=== PATIENT | male | born 1960 | race African-American/Black ===

== ENCOUNTER 2019-02-13 16:50 | Inpatient (IN) | payer OTHER ==
[~2019-02-13] VITALS: Ht 165.1 cm; Wt 71.2 kg
--- NOTE | 2019-02-13 17:52 | NUR ---
PATIENT ADMITTED TO ROOM 520B, ORDERS Juan C MCDANIEL, AT 1600. DIAGNOSIS, MAJOR NEUROCOGNITIVE DISORDER. PATIENT ABLE TO ANSWER ALL QUESTIONS APPROPRIATELY. WEIGHED ON BED SCALES AT 159.2 POUNDS, HEIGHT IS 5'7.5 INCHES. MEDICATION ORDERS ENTERED. PATIENT ON REGULAR DIET, SERVED BY DIETARY AT THIS TIME. PATIENT VOLUNTARY ADMIT, SIGNED REQUIRED PAPERWORK PER SELF.
[2019-02-13] MEDS ORDERED: LEXAPRO 10 MG T10 M2 PO (18:02)
[2019-02-13] MEDS ORDERED: ASPIR 8181 MG PO (18:03)
[2019-02-13] MEDS ORDERED: LIPITOR 20 MG T20 M1 PO ×2 (18:06→18:07)
--- NOTE | 2019-02-13 18:08 | NUR ---
INFORMATION RECEIVED FROM ADMITTING IS THAT PATIENT'S MEDICAID IS NOT CURRENTLY ACTIVE. N.P., ALICIA MCDANIEL, NOTIFIED OF IN[employer]MA[employer], WHO ADVISED THAT PATIENT HAS ALREADY BEEN ADMITTED. THEREFORE, NOTHING TO BE DONW AT THIS TIME, OTHER THAN ACCEPT THE PATIENT PRO-BARB.
[2019-02-13] MEDS ORDERED: CLONIDINE HCL0.2 M2 TOP (18:10)
[2019-02-13] MEDS ORDERED: KEPPRA 500 MG500 M1 PO (18:12)
[2019-02-13] MEDS ORDERED: LISINOPRIL40 MG PO (18:14)
[2019-02-13 19:39] VITALS: BP 129/70
[2019-02-13 21:23] LABS: HEMATOCRIT 39.8 % (42.0-52.0); HEMOGLOBIN 13.2 gm/dL (14.0-18.0); MCH 29.3 pg (26.0-34.0); MCHC 33.3 g/dL (28.0-37.0); MCV 87.9 fL (80.0-100.0); RBC 4.53 mil/uL (4.50-6.00); RDW 15.6 % (10.5-14.5); WBC 7.2 thou/uL (4.0-11.0)
[2019-02-13 21:42] LABS: ALBUMIN 3.6 g/dL (3.4-5.0); CREATININE 1.2 mg/dL (0.7-1.3); MAGNESIUM 1.8 mg/dL (1.8-2.4); POTASSIUM 3.8 mmol/L (3.5-5.1)
--- NOTE | 2019-02-13 21:59 | NUR ---
Pt resting in bed upon arrival to shift. Pt met with hospitalist. Pt compliant with medication, snack and lab draw. Pt did ambulate steady into day room to look out of window x 1. Pt provided walker since he uses cane at home, pt is using metcalf rails when ambulating at this time. Pt has blunted affect but good eye contact when interacting with staff. Pt had clonidine patch explained to him purpose and removal. Pt provided urinal for hs use. Pt did verbalize fleeting SI but no specific plan.
[2019-02-13 23:15] LABS: TSH 1.405 uIU/mL (0.358-3.740)
[2019-02-14 07:30] VITALS: BP 105/72
--- NOTE | 2019-02-14 17:15 | NUR ---
ASSUMED CARE AT 0700 TODAY. PT. VERY QUIET SITTING ON THE UNIT WATCHING TV. PT. APPROACHED ON FEBRUARY OCCASIONS TODAY RE: MOOD, THOUGHT PROCESS, PHYSICAL BEING. HE STATES HIS BOWELS HAS NOT MOVE AT ALL TODAY, VERY LITTLE YESTERDAY. HE STATES HE BELIEVES HE WILL REQUIRE A LAXATIVE OR STOOL SOFTNER. ALICIA WU NEEDLE LOOM TENDER HERE TO SEE PT. TODAY. PT. CONTINUES TO EXHIBIT A FLAT AFFECT AND DEPRESSED MOOD. HE DENIES SI/HI AND AVH AT THIS TIME. REFUSED SHOWER TODAY. STATED HE CLEANED HIMSELF UP, BUT NOT NOTED BY STAFF. ATE ALL MEALS ON UNIT WITH GOOD APPETITE. TOOK MEDICATIONS WITHOUT PROBLEMS NOTED. ATTENEDED GROUP.
[2019-02-14 20:01] VITALS: BP 118/76
[2019-02-14 21:42] VITALS: BP 118/76
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
[2019-02-15 07:05] VITALS: BP 139/94
[2019-02-15 13:17] VITALS: BP 124/56
--- NOTE | 2019-02-15 13:25 | NUR ---
ASSUMED CARE AT 0700 THIS MORNING. HE WAS ON THE UNIT FOR MEALS, AND GROUPS. PT. CONTINUES TO BE VERY QUIET, SPEAKING LITTLE TO STAFF. HE TOOK HIS MEDICATIONS WITHOUT PROBLEMS NOTED. HE ATTENDED GROUPS, BUT SAID LITTLE. THIS RN TALKED TO THE PT. ABOUT SEEKING STAFF WHEN HE WANTS TO OR NEEDS TO TALK. PT. NODDED HIS HEAD THE AFFIRMATIVE THAT HE UNDERSTOOD. HE REFUSED SHOWER WHEN OFFERED. DENIES HI/AVH. HE IS NOT TALKING ABOUT SI WITH STAFF.
--- NOTE | 2019-02-15 19:31 | NUR ---
ASSUMED CARE OF THE PT AT 1915PM. ALERT ET ORIENTED X 3. MAKES NEEDS KNOWN, WALKS WITH A WALKER. RATES HIS ANXIETY AND DEPRESSION A 05/22. +SI, WITH NO PLAN. DENIES HI AT THIS TIME. REMAINS ON 12 MINUTE CHECKS.
[2019-02-15 20:08] VITALS: BP 123/83
--- NOTE | 2019-02-16 03:17 | NUR ---
THE PT APPEARS TO HAVE BEEN SLEEPING THIS SHIFT, RESP., EVEN AND UNLABORED. WALKS WITH A WALKER, HAS A FAIRLY STEADY GAIT. DENIED PAIN EARLIER IN THE SHIFT.
--- NOTE | 2019-02-16 06:12 | NUR ---
THE PT SLEPT 8.2 HOURS LAST NIGHT.
[2019-02-16 07:49] VITALS: BP 138/102
[2019-02-16 08:00] VITALS: BP 138/102
--- NOTE | 2019-02-16 08:00 | NUR ---
PT UP THIS AM IN DINNING ROOM. PT USES WALKER TO HELP WITH AMBULATION. PT DENIES ANY PAIN THIS AM. PT LUNGS CLEAR, NO WHEEZING ASCULTATED. PT HAS FLAT AFFECT.
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
--- NOTE | 2019-02-16 13:23 | NUR ---
PT HAS BEEN ATTENDING GROUP TODAY. NO COMPLAINTS. COMPLAIANT WITH MEDS AND THERAPY.
--- NOTE | 2019-02-16 14:40 | NUR ---
1430: Report from LISSA See, care assumed. Pt resting lt lateral position in bed, no distress noted.
[2019-02-16 20:10] VITALS: BP 142/96
[2019-02-16 21:30] VITALS: BP 134/86
--- NOTE | 2019-02-17 02:08 | NUR ---
Withdrawn to room at beginning of shift-did come out briefly for hs snack-minimally verbal during initial assessment -blunted affect-slight delay to verbal responses-did report mood as "tired" and acknowledges feeling depressed stating "i was staying with my son and he has 5 dogs,2cats and a rabbit,I wasn't getting much sleep" Does report low energy,feelings of hopelessness since "my girlfriend of 25 years left me" but states he feels slightly more hopeful currently. Denies c/o pain/discomfort. BP recorded at 2030 132/102-rechecked manually and is 134/86-denies headache,visual disturbance etc. gait slow but steady with use of roller walker-bs slightly hypoactive and reports loose stools x 2 today-refuses hs stool softner stating "it is too soft already-i don't want anuything for my bowels it is messing me up". Denies si/sh/hi-to bed at approx 2030.
--- NOTE | 2019-02-17 02:18 | NUR ---
Awake and restless in room-sitting on side of bed-requesting coffee- stating he "never" sleeps well and did take melatonin for awhile and it helped-encouraged to speak with md farias this-states he doesn't feel like he wants to take anything at this time for sleep "i just want to sit up for a little bit"
[2019-02-17 08:15] VITALS: BP 151/114
--- NOTE | 2019-02-17 08:31 | NUR ---
0715: Report rec from noc shift, care assumed. Awake sitting at edge of bed, oriented to name and place, forgetful, pleasant and cooperative. Urostomy site checked, no leaking noted, stoma intact/WNL color. VS stable, skin w/d, color pale. Ambulatory to DR, gait steady, feeds self, appetite good, consumed 100% of a.m. meal.
--- NOTE | 2019-02-17 08:36 | NUR ---
0715: Report from [facility] shift, care assumed. Ambulatory in halls with walker, gait steady, incont. of urine on metcalf floor, assisted pt back to room, brief changed, pt toileted and ambulatory to . Feeds self, mood flat, minimal verbal communication noted from pt. Cooperative with staff, follows instructions. B/P 151/114, HR 77, asymptomatic, will cont to monitor.
[2019-02-17 15:16] LABS: URINE BILIRUBIN NEGATIVE (Negative); URINE BLOOD NEGATIVE (Negative); URINE CLARITY CLEAR; URINE COLOR YELLOW; URINE GLUCOSE-RANDOM* NEGATIVE (Negative); URINE KETONES NEGATIVE (Negative); URINE LEUKOCYTES-REFLEX NEGATIVE (Negative); URINE NITRITE-REFLEX NEGATIVE (Negative); URINE PROTEIN (DIPSTICK) NEGATIVE (Negative); URINE SPECIFIC GRAVITY <= 1.005 (1.005-1.035); URINE UROBILINOGEN 0.2 E.U./dl (0.2-1.0)
--- NOTE | 2019-02-17 18:43 | NUR ---
NATHAN sent three referrals to [facility], and [facility]. NATHAN will follow-up with the admission department on February 18, 2019 to see if the pt will be accepted.
[2019-02-17 19:30] VITALS: BP 151/96
--- NOTE | 2019-02-18 00:19 | NUR ---
SITTING IN DAYROOM WITH MALE PEER UPON INITIAL ASSESSMENT THIS PM-AFFECT REMAINS CONSTRICTED-BUT IS SLIGHTLY MORE VERBAL THEN PREVIOUS PM. BP READING 151/96-EARLIER IN DAY 151/114-RECHECKED MANUALLY AND IS 136/100- MANAGER COMBINATION CONTACTED AND NEW ORDER FOR HYDRALIZINE 50MG ADMINISTERED AT 2200. PT REQUESTING SLEEP MEDICINE STOCK CHASER CONTACTED AND ORDER RECEIVED FOR MELATONIN 3MGPO PRN HS-ADMINISTERED AT 2200-APPEARS TO BE RESTING QUIETLY CURRENTLY.
[2019-02-18 06:01] VITALS: BP 130/78
[2019-02-18 07:34] VITALS: BP 120/90
[2019-02-18 07:40] VITALS: BP 120/90
--- NOTE | 2019-02-18 08:30 | NUR ---
PT DENIES ANY PAIN AT THIS TIME. PT UP WITH WALKER AND STEADY GAIT. PT REFUSED TO WEAR BRIEFS, PT HAS SOME INCON. PT LUNGS CLEAR AND ON ROOM AIR.
--- NOTE | 2019-02-18 09:45 | NUR ---
PT WANTING SOMETHING FOR HEADACHE, WILL PAGE
--- NOTE | 2019-02-18 10:32 | NUR ---
ADM TYLENOL 325MG 2 TABS PO FOR HEADACHE PAIN OF 8 ON 1-10 SCALE.
--- NOTE | 2019-02-18 12:37 | NUR ---
NATHAN spoke with pt son Zheng simmons concerning pt discharge into a AL or NF. He stated that his father is not able to move on his own, he will need assistance with ADL's, and medication reminders. Zheng mention that a lady name Phyllis Ying is his payee, and she is only given him $700.00. NATHAN called in spoke with Phyllis Ying concerning patient SSI. She stated that she is his payee, and she gives $700.00 for his rent, and clothing. She stated that she keeps $150.00 for his life insurance, and extra money he may need. NATHAN explained that the pt needs an copy of his award letter that he may recieve for his AL or NF. Phyllis stated she will fax an copy of his award letter. SW provide her contact information. NATHAN will follow-up with pt upon discharge.
--- NOTE | 2019-02-18 19:08 | NUR ---
PT ATTENDING GROUPS TODAY. PLAYED BOARD GAME WITH OTHER PATIENT AND REC THERAPY. NO BEHAVIORS SEEN FROM PT.
[2019-02-18 20:16] VITALS: BP 166/115
[2019-02-18 21:58] VITALS: BP 166/115
--- NOTE | 2019-02-19 03:33 | NUR ---
PT RESTING IN ROOM AT [facility] OF SHIFT. QUIET AND COOPERATIVE, BUT ISOLATIVE. DID NOT COME OUT FOR EVENING SNACKS. TOOK HS MEDS PRESCRIBED. NO NEGATIVE BEHAVIOR NOTED.
[2019-02-19 07:15] VITALS: BP 155/116
--- NOTE | 2019-02-19 12:29 | NUR ---
PATIENT CALM AND AGREEABLE. STATED NO THOUGHTS OF S/I - GOOD APPETITE. MED COMPLIANT. PARTICIPATED IN GROUP - FEELS READY TO DISCHARGE. MAKES NEEDS KNOWN. AFFECT REMAINS FLAT BUT RESPONSIVE TO QUESTIONS. NO PAIN WHEN ASSESSED MANUVERS AROUND UTILIZING WALKER - -
--- NOTE | 2019-02-19 12:42 | NUR ---
Weekly Recreational Therapy Progress Note Date of Admission: 02/13/19 Date of Activity Therapy Assessment: 02/14/2019 Activity Goal: Manage anxiety symptoms Initial Goal: 2 Group activities/day Weekly progress towards goal: On track Group participation level: Full Behaviors observed: Appropriate social interractions with peers. No behaviors. Plan: No change towards goal
--- NOTE | 2019-02-19 13:25 | NUR ---
SW spoke with Mp in she will accept into [facility]. Pt will discharge on February 22, 2019 at Noon. Mrs. Toribio will come evaluate him on Friday at 10:00am
[2019-02-19 19:55] VITALS: BP 173/115
--- NOTE | 2019-02-20 01:46 | NUR ---
NURSES NOTE - COURT IS ALERT AND ORIENTED X3, HE IS CALM AND COOPERATIVE IN THE [place], HE IS OBSERVED MINIMALLY INTERACTING WITH OTHERS IN THE [place], DURING ONE TO ONE PATIENT IS PLEASANT, VOICE AND GOALS ARE FORWARD THINKING. HE FREELY TALKS ABOUT HIS DESIRE TO DISCHARGE AND HE HOLDS MEANINGFUL CONVERSATIONS WITH THIS NURSE. HE DENIES SI HI AND HALLUCINATIONS AT TIME OF ASSESSMENT. DURING ROUNDS THROUGH THE EVENING HE APPEARS TO BE IN BED WITH EYES CLOSED AND RR EVEN AND UNLABORED. LUNG SOUNDS CLEAR TO AUSCULATION, CAP REFILL LESS THAN 3 SECONDS. NO OUTWARD S/S OF MEDICAL DISTRESS. NURSING WILL MAINTAIN ROUNDS TO ENSURE SAFETY AT ALL TIMES FOR PATIENT AND REASSES NECESSARY FOR PATIENT.
--- NOTE | 2019-02-20 06:32 | NUR ---
TOOK PATIENTS BLOOD PRESSURE VIA DYNAMAP RESULTS WERE 190/143, RETOOK BLOOD PRESSURE MANUALLY AND RESULTED IN 148/98. PT HAS NO COMPLAINTS OF BATISTA, OR ANY S/S OF DISTRESS OR HYPERTENSIVE CRISIS. ALERT AND ORIENTED X4. WILL CONTINUE TO MONITOR.
[2019-02-20 10:47] VITALS: BP 176/97
--- NOTE | 2019-02-20 14:23 | NUR ---
ASSUMED CARE AT 0700 THIS MORNING. HE HAS BEEN PLEASANT, COOPERATIVE WITH GROUPS AND MEDICATIONS. HE ATE MEALS ON THE UNIT. HE IS TALKING VERY LITTLE TO STAFF EVEN WHEN APPROACHED BY STAFF. HE USUALLY GIVES SIMPLE OR ONE WORD ANDSWERS BUT DOES NOT ELABORATE. DENIES SI AT THIS TIME. DENIES HI, AVH ALSO.
--- NOTE | 2019-02-20 23:13 | NUR ---
ASSUMED CARE OF THE PT AT 1915PM. ALERT ET ORIENTED X 3. MAKES NEEDS KNOWN. THE PT IS MISSING HIS RIGHT EYE. IS VERY QUIET. GETS AROUND IN A WHEELCHAIR. DENIES ANXIETY AND DEPRESSION, DENIES SI AND HI. DENIES A/V HALLUNICATIONS. TAKES HIS MEDICATIONS WITHOUT ANY DIFFICULTY. REMAINS ON 12 MINUTE CHECKS FOR HIS SAFETY.
--- NOTE | 2019-02-21 03:21 | NUR ---
THE PT APPEARS TO HAVE BEEN RESTING COMFORTABLY THIS NOC SHIFT.
[2019-02-21 07:55] VITALS: BP 160/111
[2019-02-21 10:06] VITALS: BP 160/111
--- NOTE | 2019-02-21 10:36 | NUR ---
ASSUMED CARE AT 0700 THIS MORNING. PT. UP, DRESSED AND ON THE UNIT. HE REMAINS VERY QUIET AND RESERVED. HE SPEAKS VERY LITTLE TO STAFF OR PEERS. WHEN APPROACHED, HE GIVE SHORT ANSWERS AND DOES NOT ELABORATE. ATE MEALS ON THE UNIT AND ATTENDED GROUPS. WATCHED TV MUCH TODAY.
[2019-02-21 20:30] VITALS: BP 158/115
--- NOTE | 2019-02-22 00:07 | NUR ---
ASSUMED CARE @ 19:15, IN THE DAY ROOM, WATCHING TV. WENT TO HIS ROOM AND DRIBBLED URINE FROM THE NURSES DOOR TO HIS BATHROOM. VS @ 19:30 158/115 82 18 98.5F. @ 2300 VS 160/101 122 18. REPORTS LARGE BM YESTERDAY, NONE TODAY. WILL CONTINUE TO MONITOR.
--- NOTE | 2019-02-22 05:57 | NUR ---
SLEPT WELL, WOKE UP SEVERAL TIMES TO URINATE, THEN WENT BACK TO SLEEP.WILL CONTINUE TO MONITOR.
[2019-02-22 07:45] VITALS: BP 160/80
[2019-02-22] MEDS ORDERED: ATORVASTATIN CA40 MG PO (09:24)
[2019-02-22] MEDS ORDERED: CATAPRES-TTS 20.2 MG TRANSDERM (09:25)
[2019-02-22] MEDS ORDERED: ACCUPRIL40 MG PO (09:25)
[2019-02-22] MEDS ORDERED: AMLODIPINE BESY10 MG PO (09:25)
[2019-02-22] MEDS ORDERED: KEPPRA 500 MG500 M1 PO (09:26)
[2019-02-22] MEDS ORDERED: LEXAPRO 10 MG T10 MG PO (09:26)
[2019-02-22] MEDS ORDERED: SENNA8.6 MG PO (09:27)
[2019-02-22] MEDS ORDERED: ABILIFY 2 MG2 M1 PO (09:27)
[2019-02-22 11:48] VITALS: BP 160/80
--- NOTE | 2019-02-22 12:04 | NUR ---
ASSUMED CARE AT 0700 TODAY. PT. UP IN HOSPITAL GOWN ALWAYS. HE HAS A T-SHIRT BUT NO JEANS. THIS RN WENT TO ER AND FOUND A PAIR OF JEANS FOR THE PATIENT. HE PUT THESE ON AND GOT DRESSED. PT. INFORMED HE WILL BE LEAVING AND WILL BE GOING TO [facility] TODAY. HE DID NOT HAVE ANY BELONGINGS WITH HIM WHEN HE CAME TO THIS UNIT. HE HAS BEEN UP ON THE UNIT, BUT ISOLATIVE ON THE UNIT, SITTING BY HIMSELF, INTERACTING UPON APPROACH ONLY. SPOKE WITH THE DRAndreia THIS MORNING. 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 HIS BLOOD PRESSURE REMAINS ELEVATED BUT NORVASC WAS ADDED TO HIS MEDICATION LIST. PROVIDED SCRIPTS FOR THE PATIENT FOR PLANS OF DISCHARGE. PT. IS PLEASANT AND COOPERATIVE WITH STAFF. EATS MEALS ON THE UNIT, AND ATTENDS GROUPS.
--- NOTE | 2019-02-22 12:35 | NUR ---
Patient Name: COURT BUCHANAN Admission Date: 02/13/19 DISCHARGE PLAN: Pt will be discharge to [facility]. Care Assessment: Pt was assessed by Dr. Vasquez, and diagnosed Major Neurocognitive Disorder. Level II Assessment: None Transportation: Pt will be transported by [facility]. Special Instructions/Notes: Pt will need to follow-up [facility] for continuance care for psychiatric services. DISCHARGE TO FACILITY: [facility] Facility: [facility] Fax: Address: [facility]. [address] [place] [id number] Contact Name: Judy PCP: BAUTISTA Psychiatrist: [facility]
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
== END 2019-02-22 13:57 | DRG 885 ==
LOC: SBH 16:50
PROVIDERS: Internal Medicine; ADMIT Psychiatry & Neurology Psychiatry
DX: F33.2 Major depressive disorder, recurrent severe without psychotic features (principal); R45.851 Suicidal ideations; E78.5 Hyperlipidemia, unspecified; I10 Essential (primary) hypertension; F43.10 Post-traumatic stress disorder, unspecified; R32 Unspecified urinary incontinence; F17.210 Nicotine dependence, cigarettes, uncomplicated; Z86.73 Personal history of transient ischemic attack (TIA), and cerebral infarction without residual deficits; Z79.82 Long term (current) use of aspirin; Z79.899 Other long term (current) drug therapy
CPT/HCPCS: 10880